=== PATIENT | male | born 1990 ===

== ENCOUNTER 2021-12-24 18:09 | Outpatient (REF) | payer BC, SELFPAY ==
[2021-12-26 11:33] LABS: COVID-19 RT-PCR UVMMC Result Positive (Negative)
== END 2021-12-24 18:10 | disposition home or self-care (01) ==
LOC: LBN 18:09
PROVIDERS: Visit Provider Physician Assistant Medical
DX: Z20.822 Contact with and (suspected) exposure to COVID-19 (principal); R05.8 Other specified cough
CPT/HCPCS: U0003

== ENCOUNTER 2024-04-10 10:10 | Outpatient (REF) | payer BC, SELFPAY ==
[2024-04-10 15:45] LABS: Anion Gap 5.9 mmol/L (3-11); BUN 14 mg/dL (7-18); CO2 29.1 mmol/L (21.0-32.0); CREATININE 0.9 mg/dL (0.70-1.30); Calcium 9.7 mg/dL (8.5-10.1); Calculated LDL 162 mg/dL (<100); Chloride 105 mmol/L (98-107); Cholesterol 233 mg/dL (<200); Estimated GFR 114.22 (mL/min/1.73m2); Glucose 90 mg/dL (74-106); HDL Cholesterol 49 mg/dL (40-60); Potassium 4.7 mmol/L (3.5-5.1); Sodium 140 mmol/L (136-145); Triglyceride 113 mg/dL (<150)
== END 2024-04-10 10:11 | disposition home or self-care (01) ==
LOC: NCHCN 10:10
PROVIDERS: Visit Provider Student in an Organized Health Care Education/Training Program
DX: Z13.220 Encounter for screening for lipoid disorders (principal); Z13.1 Encounter for screening for diabetes mellitus
CPT/HCPCS: 80048; 80061

== ENCOUNTER 2024-06-19 10:07 | Outpatient (REF) | payer BC, SELFPAY ==
[2024-06-19 15:56] LABS: ALT 69 U/L (16-63); AST 40 U/L (15-37); Albumin 3.9 g/dL (3.4-5.0); Alkaline Phosphatase 119 U/L (46-116); BUN 14 mg/dL (7-18); Bilirubin, Total 1.1 mg/dL (0.2-1.0); CREATININE 0.8 mg/dL (0.70-1.30); Calcium 9.6 mg/dL (8.5-10.1); Calculated LDL 53 mg/dL (<100); Chloride 105 mmol/L (98-107); Cholesterol 129 mg/dL (<200); Estimated GFR 117.63 (mL/min/1.73m2); Glucose 102 mg/dL (74-106); HDL Cholesterol 54 mg/dL (>or=40); Potassium 4.7 mmol/L (3.5-5.1); Sodium 140 mmol/L (136-145); Total Protein 6.7 g/dL (6.4-8.2); Triglyceride 110 mg/dL (<150)
== END 2024-06-19 10:08 | disposition home or self-care (01) ==
LOC: NCHCN 10:07
PROVIDERS: Visit Provider Student in an Organized Health Care Education/Training Program
DX: E78.5 Hyperlipidemia, unspecified (principal)
CPT/HCPCS: 80053; 80061

== ENCOUNTER 2024-11-15 18:23 | Outpatient (REF) | payer BC, SELFPAY ==
[2024-11-15 16:37] LABS: ALT 32 U/L (16-63); AST 22 U/L (15-37); Albumin 4.2 g/dL (3.4-5.0); Alkaline Phosphatase 107 U/L (46-116); Anion Gap 8.7 mmol/L (3-11); BUN 14 mg/dL (7-18); Bilirubin, Total 1.0 mg/dL (0.2-1.0); CO2 28.3 mmol/L (21.0-32.0); Calcium 9.5 mg/dL (8.5-10.1); Chloride 102 mmol/L (98-107); Estimated GFR 100.03 (mL/min/1.73m2); Glucose 136 mg/dL (74-106); Potassium 3.8 mmol/L (3.5-5.1); Sodium 139 mmol/L (136-145); Total Protein 6.9 g/dL (6.4-8.2)
== END 2024-11-15 18:24 | disposition home or self-care (01) ==
LOC: NCHCN 18:23
PROVIDERS: Visit Provider Student in an Organized Health Care Education/Training Program
DX: R74.01 Elevation of levels of liver transaminase levels (principal)
CPT/HCPCS: 80053